=== PATIENT | female | born 1965 | race Caucasian/White ===

== ENCOUNTER 2023-02-05 08:53 | Outpatient (CLI) | payer OTHER, SELFPAY ==
--- NOTE | 2023-02-05 09:15 | MR_ITS ---
[address] [address] Phone:?[phone] Fax:?[phone] Referring Physician Information: Roxana Jessica [address] [facility] [address] Phone:?[phone] Fax:?[phone] Patient:Azeem Livingston D.O.B:?1965 Sex:?Female Phone:?[phone] [facility] MRN:?[id number] Exam Date:?02/05/2023 EXAM: MRI of the LEFT ELBOW, without contrast CLINICAL HISTORY: Left elbow pain. COMPARISONS: None available. TECHNICAL: MR sequences of the left elbow: Axials: PD, T2 Coronals: PD, T2 Sagittals: PD, STIR, T2, T1 Sedation: None Contrast: None FINDINGS: Bones: There is a comminuted and impacted intra-articular radial head fracture. There is a 1.1 x 1.7 x 1.0 cm intra-articular fracture fragment at the posterior aspect of the radial head abutting the posterior aspect of the capitellum best seen on coronal images 44 through 47 . There is estimated 1-2 mm of subchondral bone plate offset although this would be more optimally evaluated by the scan if clinically indicated. There is bone marrow contusion of the posterior portion of the capitellum. Ligaments: Medial ulnar collateral: There is tear of the medial ulnar collateral ligament at the sublime tubercle attachment with 4 mm of medial avulsion from the sublime tubercle best seen on coronal images 16 through 18. There is also slitlike tear within the proximal portion of the medial ulnar collateral ligament at the medial epicondylar attachment measuring 7 mm in transverse dimension with 1 mm of avulsion from the medial epicondylar attachment best seen on coronal series 4 image 19. Radial collateral proper: Intact. Lateral ulnar collateral: Intact. Annular ligament: Intact. Myotendinous structures: Biceps: Intact. Triceps: Intact posterior tendinous and anterior muscular insertions and lateral aponeurotic component, without tendinopathy, strain or tear. Brachialis: Strain or contusion injury best seen on coronal series 4 images 12 through 16. Supinator: No strain/tear. Forearm extensors: No tear or tendinopathy. Forearm flexors: No tear or tendinopathy. Elbow joint: Joint fluid: Trace left elbow joint effusion. Ganglion cyst: None. Radiohumeral plica: No pathologic thickening or enlargement. Bursae: No pathologic olecranon or bicipitoradial bursal thickening/bursitis. Nerves: Ulnar: Unremarkable. Median: Unremarkable. Radial: Unremarkable. IMPRESSION: 1. Comminuted and impacted intra-articular radial head fracture. 1.1 x 1.7 x 1.0 cm intra-articular fracture fragment at the posterior aspect of the radial head abutting the posterior aspect of the capitellum. Estimated 1-2 mm of subchondral bone plate offset although this would be more optimally evaluated by CT scan if clinically indicated. Correlation with any available plain radiographs is also recommended. 2. Tear of the medial ulnar collateral ligament at the sublime tubercle attachment with 4 mm of medial avulsion from the sublime tubercle. In addition, slitlike tear within the proximal portion of the medial ulnar collateral ligament at the medial epicondylar attachment measuring 7 mm in transverse dimension with 1 mm of avulsion from the medial epicondylar attachment. 3. Bone marrow contusion of the posterior portion of the capitellum. 4. Strain or contusion of the distal portion of the brachialis muscle. 5. Trace left elbow joint effusion. RCB Electronically signed on 02/05/2023 1:09:00 PM by Delfino Woodson M.D.
== END 2023-02-05 08:54 | disposition home or self-care (01) ==
LOC: MRI 08:55
PROVIDERS: Visit Provider Physician Assistant
DX: M25.522 Pain in left elbow (principal); S52.122A Displaced fracture of head of left radius, initial encounter for closed fracture; S53.442A Ulnar collateral ligament sprain of left elbow, initial encounter; S50.02XA Contusion of left elbow, initial encounter; M25.422 Effusion, left elbow
CPT/HCPCS: 73221

== ENCOUNTER 2024-10-14 06:20 | Outpatient (CLI) | payer BC, SELFPAY ==
--- NOTE | 2024-10-14 08:15 | P.ANES_ITS ---
Anesthesia Charges Start Date/Time Anesthesia Start Date: 10/14/24 Anesthesia Start Time: 07:31 Stop Date/Time Anesthesia Stop Date: 10/14/24 Anesthesia Stop Time: 08:13 Coding CPT Codes CPT Codes: ANEAna Paula LWR INTST SCR COLSC - 69816 ([id number]) P1 - NORMAL HEALTHY PATIENT, QK - DIRECTOR SEARCH MARKETING STRATEGIES 2-4 CNCRNT ANES PROC, QX - DIRECTOR UNDERWRITER SALES SVC W/ MED DIRECTION
--- NOTE | 2024-10-14 08:15 | W.ANESCHARGE ---
Anesthesia Charges Start Date/Time Anesthesia Start Date: 10/14/24 Anesthesia Start Time: 07:31 Stop Date/Time Anesthesia Stop Date: 10/14/24 Anesthesia Stop Time: 08:13 Coding CPT Codes CPT Codes: ANEAna Paula LWR INTST SCR COLSC - [id number] ([id number]) P1 - NORMAL HEALTHY PATIENT, QK - INDUSTRIAL ANALYST 2-4 CNCRNT ANES PROC, QX - CLINICAL PRODUCT SPECIALIST SVC W/ MED DIRECTION
--- NOTE | 2024-10-14 08:17 | P.ANES_ITS ---
Anesthesia Charges Start Date/Time Anesthesia Start Date: 10/14/24 Anesthesia Start Time: 07:31 Stop Date/Time Anesthesia Stop Date: 10/14/24 Anesthesia Stop Time: 08:13 Coding CPT Codes CPT Codes: BHARGAVI LWR INTST SCR COLSC - [id number] ([id number]) P1 - NORMAL HEALTHY PATIENT, QX - FILER AND SANDER [place] W/ MED DIRECTION, QK - WEB CONSULTANT 2-4 CNCRNT ANES PROC
--- NOTE | 2024-10-14 08:17 | W.ANESCHARGE ---
Anesthesia Charges Start Date/Time Anesthesia Start Date: 10/14/24 Anesthesia Start Time: 07:31 Stop Date/Time Anesthesia Stop Date: 10/14/24 Anesthesia Stop Time: 08:13 Coding CPT Codes CPT Codes: BHARGAVI LWR INTST SCR COLSC - [id number] ([id number]) P1 - NORMAL HEALTHY PATIENT, QX - CARPET INSPECTOR FINISHED [employer] W/ MED DIRECTION, QK - GROUP CONTROLLER 2-4 CNCRNT ANES PROC
== END 2024-10-14 06:21 | disposition home or self-care (01) ==
PROVIDERS: PCP Internal Medicine; Visit Provider Surgery
DX: Z12.11 Encounter for screening for malignant neoplasm of colon (principal); D12.2 Benign neoplasm of ascending colon
CPT/HCPCS: 00812; 45381; 45385; J2704